=== PATIENT | male | born 1980 | race Caucasian/White ===

== ENCOUNTER 2020-02-27 23:14 | Emergency (ER) | payer SELFPAY ==
[2020-02-27 23:57] LABS: EOS # 0.1 (0.04-0.40); EOS % 1.1 % (0.0-4.0); HEMATOCRIT 41.6 % (42.0-52.0); HEMOGLOBIN 14.4 g/dL (13.5-18.0); LYMPH# 1.9 (1.50-4.00); MEAN CELL VOLUME 92 fl (78-100); MEAN CORPUSCULAR HEMOGLOBIN 32 pg (27-31); MEAN CORPUSCULAR HGB CONC 35 g/dL (33-37); MEAN PLATELET VOLUME 9.8 fl (7.4-10.4); MONO # 0.4 (0.20-0.80); NEU # 3.2 (1.40-6.50); PLATELET COUNT 148 K/mm3 (130-400); RED BLOOD COUNT 4.54 M/mm3 (4.20-5.60); RED CELL DISTRIBUTION WIDTH 12.4 % (11.5-14.5); WHITE BLOOD COUNT 5.5 K/mm3 (4.8-10.8)
[2020-02-28 00:09] LABS: ALBUMIN 4.3 g/dL (3.5-5.0); POTASSIUM 3.8 mmol/L (3.5-5.1)
[2020-02-28 00:11] LABS: CALCIUM 9.3 mg/dL (8.3-10.5)
[2020-02-28 00:12] LABS: TOTAL PROTEIN 6.5 g/dL (6.4-8.3)
[2020-02-28] MEDS ORDERED: LEVOTHYROXINE125 MCG PO (00:12)
[2020-02-28 00:13] LABS: TOTAL BILIRUBIN 0.8 mg/dL (0.2-1.2)
[2020-02-28 00:16] LABS: URINE APPEARANCE CLEAR; URINE BILIRUBIN NEGATIVE (NEGATIVE); URINE BLOOD NEGATIVE (NEGATIVE); URINE COLOR YELLOW; URINE GLUCOSE NEGATIVE (NEGATIVE); URINE KETONE NEGATIVE (NEGATIVE); URINE LEUKOCYTE ESTERASE NEGATIVE (NEGATIVE); URINE NITRATE NEGATIVE (NEGATIVE); URINE PROTEIN(semi-quant) NEGATIVE (NEGATIVE); URINE UROBILINOGEN NORMAL (NORMAL); URINE WBC 0-1 /hpf (0-3)
[2020-02-28 01:02] VITALS: BP 136/76
== END 2020-02-28 00:54 | disposition home or self-care (01) ==
LOC: ED 23:14
PROVIDERS: Physician Assistant
DX: F41.9 Anxiety disorder, unspecified (principal); G47.00 Insomnia, unspecified; E03.9 Hypothyroidism, unspecified; F43.9 Reaction to severe stress, unspecified; Z88.2 Allergy status to sulfonamides